=== PATIENT | female | born 1950 | race Caucasian/White ===

== ENCOUNTER → 2018-01-23 11:33 | Outpatient (CLI) | payer OTHER, MEDICARE, SELFPAY | PROVIDERS: PCP Family Medicine; Visit Provider Family Medicine | DX: R30.0 Dysuria (principal) | CPT/HCPCS: 87086 ==

== ENCOUNTER → 2019-11-25 14:01 | Outpatient (CLI) | payer OTHER, MEDICARE, SELFPAY ==
[2019-11-26 21:05] LABS: COVID19 Sendout Not Detected (Not Detect)
== END ==
PROVIDERS: PCP Family Medicine; Visit Provider Physician Assistant
DX: Z11.59 Encounter for screening for other viral diseases (principal)
CPT/HCPCS: 87635

== ENCOUNTER → 2020-01-06 09:19 | Outpatient (CLI) | payer OTHER, MEDICARE, SELFPAY ==
--- NOTE | 2020-01-06 09:21 | DI.RAD.S_ITS ---
PROCEDURE: XR FOOT LT MIN 3V INDICATIONS: left foot possible foreign body TECHNIQUE: 3 views of the foot were acquired. COMPARISON: None. FINDINGS: Bones: No fractures or dislocations. No suspicious bony lesions. Soft tissues: No tibiotalar joint effusion. Achilles tendon appears normal. Linear radiodensity measuring approximately 3 mm is noted adjacent to the proximal 5th metatarsal approximately 2 mm from the skin surface. IMPRESSION: Linear radiodensity adjacent to the 5th metatarsal suggestive of foreign body. Dictated by: Karolyn Duncan M.D. on 01/06/2020 at 16:17 Approved by: Karolyn Duncan M.D. on 01/06/2020 at 16:18
== END ==
PROVIDERS: PCP Family Medicine; Referring Provider Family Medicine; Visit Provider Family Medicine
DX: M79.672 Pain in left foot (principal)
CPT/HCPCS: 73630

== ENCOUNTER → 2020-09-14 11:34 | Outpatient (CLI) | payer MEDICARE, SELFPAY ==
--- NOTE | 2020-09-14 11:37 | DI.RAD.S_ITS ---
PROCEDURE: XR LUMBAR SPINE 2-3V INDICATIONS: back pain TECHNIQUE: 3 views of the lumbar spine were acquired. COMPARISON: [facility], , L-SPINE 2-3 VIEWS, 09/11/2013, 11:23. FINDINGS: Bones: 5 [id number] vertebrae are present. Unchanged mild degenerative anterolisthesis of L4 on L5. No vertebral body compression fractures. No suspicious bony lesions. Progression of lower lumbar degenerative disc space loss. Multilevel lower lumbar facet arthropathy. Canal stenosis is suspected. Soft tissues: Overlying bowel gas pattern is normal. Right abdominal calcifications may be related to the kidney or the gallbladder. IMPRESSION: 1. Progression of degenerative disc space loss and facet arthropathy. Suspect canal stenosis. 2. No acute compression fractures. 3. Question right renal stones versus gallstones. Dictated by: Lennox Ibrahim M.D. on 09/14/2020 at 12:29 Approved by: Lennox Ibrahim M.D. on 09/14/2020 at 12:31
--- NOTE | 2020-09-14 11:37 | DI.RAD.S_ITS ---
PROCEDURE: XR HIP W PEL IF DONE RT 2V INDICATIONS: hip pain TECHNIQUE: 2 views of the hip were acquired. COMPARISON: None. FINDINGS: Bones: No fractures or dislocations. No suspicious bony lesions. The visualized pelvic ring appears intact. Mild degenerative arthritis. Soft tissues: No suspicious soft tissue calcifications or masses. 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 No evidence acute bony abnormality of the right hip. If clinical suspicion and/or symptoms persist, further assessment with repeat plain films, or advanced imaging (e.g., CT, MRI, or bone scan) may be helpful for further assessment. Dictated by: Lennox Ibrahim M.D. on 09/14/2020 at 15:42 Approved by: Lennox Ibrahim M.D. on 09/14/2020 at 15:42
--- NOTE | 2020-09-14 11:37 | DI.RAD.S_ITS ---
PROCEDURE: XR KNEE RT 3V INDICATIONS: knee pain TECHNIQUE: 3 views of the knee were acquired. COMPARISON: None. FINDINGS: Bones: No fractures or dislocations. No suspicious bony lesions. Moderate degenerative change with medial compartment and patellofemoral osteophytes. Moderate medial compartment joint space loss. Chondrocalcinosis. Soft tissues: No joint effusion. No suspicious soft tissue calcifications. IMPRESSION: Degenerative arthritis of the right knee. No evidence acute bony abnormality of the right knee. If clinical suspicion and/or symptoms persist, further assessment with repeat plain films, or advanced imaging (e.g., CT, MRI, or bone scan) may be helpful for further assessment. Dictated by: Lennox Ibrahim M.D. on 09/14/2020 at 12:31 Approved by: Lennox Ibrahim M.D. on 09/14/2020 at 12:32
[2020-09-14 12:44] LABS: HEMOLYSIS < 15 (0-50); Iron 22 ug/dL (37-170)
[2020-09-14 12:55] LABS: Percent Iron Saturation 5 % (15-50); Total Iron Binding Capacity 429 ug/dL (265-497); Transferrin 328 mg/dL (206-381)
[2020-09-14 13:19] LABS: Ferritin 4 ng/mL (11-264)
== END ==
PROVIDERS: PCP Family Medicine; Referring Provider Family Medicine; Visit Provider Family Medicine
DX: G89.29 Other chronic pain (principal); D64.9 Anemia, unspecified; M51.36 Other intervertebral disc degeneration, lumbar region; M47.896 Other spondylosis, lumbar region; M17.11 Unilateral primary osteoarthritis, right knee; M16.11 Unilateral primary osteoarthritis, right hip
CPT/HCPCS: 36415; 72100; 73502; 73562; 82728; 83540; 83550